=== PATIENT | female | born 1960 | race Hispanic/Latino ===

== ENCOUNTER 2020-11-25 08:48 | Outpatient (CLI) | payer OTHER ==
[2020-11-25 09:52] LABS: Estimated GFR-MDRD - POC Greater than 90
[2020-11-25] MEDS ORDERED: Iopamidol-370 76% 500 ML 1 ML ONE (12:15)
== END 2020-11-25 08:49 | disposition home or self-care (01) ==
LOC: BICCT 08:48
PROVIDERS: ATTEND Internal Medicine
DX: R10.13 Epigastric pain (principal); R10.12 Left upper quadrant pain; K86.89 Other specified diseases of pancreas
CPT/HCPCS: 74170; 82565; Q9967

== ENCOUNTER 2023-08-30 08:17 | Outpatient (CLI) | payer OTHER | END 2023-08-30 08:18 | disposition home or self-care (01) | LOC: BICMAMMO 08:17 | PROVIDERS: ATTEND Family Medicine | DX: N63.10 Unspecified lump in the right breast, unspecified quadrant (principal) | CPT/HCPCS: G0279 ==

== ENCOUNTER 2024-12-15 15:43 | Outpatient (CLI) | payer OTHER | END 2024-12-15 15:44 | disposition home or self-care (01) | LOC: BICRAD 15:43 | PROVIDERS: ATTEND Family Medicine | DX: R76.12 Nonspecific reaction to cell mediated immunity measurement of gamma interferon antigen response without active tuberculosis (principal) | CPT/HCPCS: 71046 ==